=== PATIENT | female | born 1970 | race African-American/Black ===

== ENCOUNTER → 2021-09-13 07:43 | Outpatient (CLI) | payer MEDICARE, OTHER, SELFPAY ==
--- NOTE | 2021-09-13 | CA_ITS ---
APPROVED REPORT Exam: Pharmacologic Technologist: Cate Mcgowan, Ht: 5 ft 0 in Wt: 217 lbs BSA: 1.93 m2 HR: 62 bpm BP: 118/74 mmHg Rhythm: NSR, normal Medical History Medical History: Hyperlipidemia, Diabetes Medications: Clonidine,,,,, Metformin,,,,, Atorvastatin,,,,, Vit D3,,,,, Fluoxetine,,,,, Quetiapine,,,,, CitruCEL,,,,, Feosol,,,,, Cardiac Risk Factors: Hyperlipidemia, Diabetes (non-insulin), FHX of CAD Stress Test Details Test: LEXISCAN HR Resting HR: 71 bpm Max Heart Rate (APMHR): 171.205836 bpm Max HR Achieved: 85 bpm Target HR (85% APMHR): 145.154901 bpm % of APMHR: 49.71 Recovery HR: 72 bpm BP Resting BP: 118/74 mmHg Max BP: 119/65 mmHg Recovery BP: 103.0/65.0 mmHg ECG Resting ECG: NSR, normal Clinical Exercise duration: 04:00 min Highest Stage Achieved: Stress ECG Conclusion During lexiscan pt experinced SOA, no CP noted. No arrhythmias noted. Unremarkable lexiscan stress. Myoview images reported separately. Test Summary . . . . . Stop exercise at 04:00 . . . . Electronically signed by : Brian Fritz MD 09/14/2021 13:05:25
--- NOTE | 2021-09-13 07:43 | CA_ITS ---
APPROVED REPORT EXAM: Comprehensive 2D, Doppler, and color-flow Echocardiogram Hydrologic Modeler: Olga Crews, SHARON, RVS Ht: 5 ft 0 in Wt: 220lbs BSA: 1.94 BP: 124/80 mmHg Indications: CP, Dyspnea, DM, HLD 2D Dimensions LVDd 5.09 cm LA Volume 28.70 mL Aortic Root 2.32 cm LA Volume Index 14.571996 mL/m2 (M/F) 16-34 Left Atrium 3.01 cm LVOT 1.81 cm (M/F) 1.5-2.5 M-Mode Dimensions RVDd 1.58 cm (0.9-2.6) LA Diam 2.86 cm (1.9-4.0) LVDd 5.16 cm (3.5-5.7) Ao Diam 2.32 cm (2.0-3.7) LVDs 3.22 cm (3.5-5.7) IVSd 0.84 cm (0.6-1.1) PWd 0.87 cm (0.6-1.1) EF (Teich) 67.30% EPSs 1.01 cm FS 37.60% EDV (Teich) 127.20 mL TAPSE 2.21 (<1.7) ESV (Teich) 41.60 mL LV Diastology E Decel Time 167.00 (160-240 msec) E/A Ratio 1.68 MED E' 12.20 (< 7 cm/sec) MED A' 7.30 cm/s E'/MED E' Ratio 8.28 (>14) LAT E' 11.90 (<10 cm/sec) LAT A' 4.70 cm/s E/LAT E' Ratio 8.49 (>14) Aortic Valve LVOT Max 108.00 (70-110 cm/s) LVOT VTI 23.51 cm AoV Peak Kelby. 192.00 (50-130 cm/s) AO Peak GR. 14.70 mmHg AO Mean GR. 7.70 (<5 mmHg) AO VTI 42.54 (18-25 cm) FUNMILAYO (VTI) 1.42 (2.5-4.5 cm2) Mitral Valve MV A Velocity 60.00 (40-130 cm/s) E/A Ratio 1.68 MV Decel. Time 167.00 (160-240 ms) MV PHT 50.00 ms Pulmonary Valve PV Peak Velocity 104.00 (50-150 cm/s) Tricuspid Valve TR P. Velocity 292.00 cm/s RAP Estimate 10.00 mmHg RVSP 44.00 mmHg Left Ventricle Left atrium normal size, left ventricle is normal size, left ventricle wall thickness is upper limit of the normal, there is preserved left ventricular systolic function, estimated ejection fraction 55% with no regional wall motion abnormality, diastolic parameters are within normal range. Right Ventricle Right atrium and right ventricle are normal size and contractility. Aortic Valve Aortic valve is grossly normal, there is no aortic stenosis or aortic insufficiency. Mitral Valve Mitral valve grossly normal, there is trace mitral regurgitation. Tricuspid Valve Tricuspid grossly normal, there is trace tricuspid regurgitation, calculated right ventricular systolic pressure is 44 mmHg. Pulmonic Valve Pulmonic valve is poorly visualized. Great Vessels Aortic root is normal size. Inferior vena cava is normal size with normal inspiratory collapse. Pericardium No significant pericardial effusion. Conclusion 1. Normal left ventricular size preserved left ventricular systolic function, estimated ejection fraction 55% with no regional wall motion abnormality, diastolic parameters are within normal range. 2. Mildly enlarged right ventricle with normal contractility. 3. Trace mitral and tricuspid regurgitation, calculated right ventricular systolic pressure is 44 mmHg. 4. No significant pericardial effusion noted. 5. Inferior vena cava normal size with normal inspiratory collapse. Electronically signed by : Brian Fritz MD 09/14/2021 14:05:35
--- NOTE | 2021-09-13 08:12 | NM_ITS ---
APPROVED REPORT Exam: Nuclear Stress Test Indication: OBESITY, D.M., HYPERLIPIDEMIA, C.P., SOB Patient Location: Outpatient Stress Tech: Caet DENNISON Tech:MARVEL Soto RT (R)(N)(M) Ht: 5 ft 1 in Wt: 217 lbs Bra Size: D HR: 62 bpm BP: 118/74 mmHg BSA: 1.96 m2 BMI: 40.9 History: OBESITY, D.M., HYPERLIPIDEMIA, C.P., SOB Procedure: Patient received a 0.4 mg of intravenous Lexiscan, resting heart rate 62 bpm, resting blood pressure 118/74 mmHg, with Lexiscan maximum heart rate achived was 85 bpm which is Less than 85 % of the maximum predicted heart rate and blood pressure was 119/65 mmHg. With Lexiscan, patient denied any complaint of chest pain. Electrocardiogram Resting electrocardiogram shows sinus rhythm, with Lexiscan less than 1.[address] segment depression noted from the baseline EKG. The EKG portion of the Lexiscan is nondiagnostic. Cardiac Stress and Resting SPECT Images: Cardiac Stress and Resting SPECT images were obtained using technetium 99m Myoview 31.9 mCi stress and 9.34 mCi at rest. Gated SPECT analysis of segmental wall motion and calculation of the ejection fraction also done, prone images were also obtained. This study is technically limited due to patient's body habitus, there is mild fixed defect in the anterior wall which is likely secondary to soft tissue attenuation, no reversible ischemia seen, however there is marked transient ischemic dilatation of the left ventricle seen, raising the concern for presence of balanced ischemia or multivessel coronary artery disease. Computer derived ejection fraction is 47% with no regional wall motion abnormality, right ventricle is mildly enlarged with normal contractility. Conclusion: 1. The EKG portion of the Lexiscan is nondiagnostic. 2. No scintigraphic evidence of reversible ischemia seen, however this study is technically limited due to patient's body habitus, there is marked transient ischemic dilatation of the left ventricle seen, raising the concern for presence of balanced ischemia or multivessel coronary artery disease, right ventricle is mildly enlarged with normal contractility. Compared right left ventricular ejection fraction is 47%. 3. Abnormal Lexiscan Myoview study. Electronically signed by : Brian Fritz MD 09/14/2021 13:08:45
[2021-09-13 08:30] LABS: Blood Urea Nitrogen 11 mg/dl (7-17); Estimated Glomerular Filt Rate 59 ml/min (>60); GFR (African American) 71 ML/MIN (>60)
--- NOTE | 2021-09-13 11:22 | CT_ITS ---
FINAL REPORT CLINICAL HISTORY: 30 lb weight loss/nausea/vomiting/fm hx of pancrea FINDINGS: CT ABDOMEN WITHOUT CONTRAST Axial CT images were performed through the abdomen without contrast. This study was performed with techniques to keep radiation doses as low as reasonably achievable, (ALARA). Individualized dose reduction techniques using automated exposure control or adjustment of mA and/or kV according to the patient's size were employed. Abdomen: The lung bases are clear. The liver is normal in size and attenuation. The gallbladder is absent. The common duct is dilated up to 1.5 cm. There are questionable densities in the distal common bile duct concerning for choledocholithiasis best seen on image 39 of series 601. There are calcified granulomas in the spleen. No adrenal mass is seen. The pancreas is unremarkable. The kidneys are unremarkable. The aorta is normal in caliber. No free fluid or adenopathy is identified. There is a large amount of retained stool. There is a partially visualized cystic mass in the mid pelvis measuring 9.6 x 5.9 cm. IMPRESSION: Partially visualized cystic mass in the mid pelvis. Cannot exclude adnexal cystic lesion. Dedicated pelvic CT is recommended for further evaluation. Dilated common duct containing possible sludge or stones. Reviewed, Interpreted and Dictated by Immanuel Cerda MD Transcribed by Palmer Biswas Authenticated and [facility]
== END ==
PROVIDERS: Nurse Practitioner Family; PCP General Practice; Visit Provider Internal Medicine
DX: R06.00 Dyspnea, unspecified (principal); R07.9 Chest pain, unspecified; R11.2 Nausea with vomiting, unspecified; G47.33 Obstructive sleep apnea (adult) (pediatric); R06.83 Snoring; R40.0 Somnolence
CPT/HCPCS: 36415; 74150; 78452; 82565; 84520; 93017; 93306; A9502; G0399; J2785

== ENCOUNTER 2021-09-17 08:50 | Day surgery (SDC) | payer MEDICARE, OTHER, SELFPAY ==
[2021-09-17] VITALS (14 sets, daily range): BP systolic 93–129; BP diastolic 60–76; PULSE 60–77; RESP 18–20; TEMP 36.9; O2SAT 91–100; BMI 42.3
--- NOTE | 2021-09-17 08:50 | CT_ITS ---
FINAL REPORT TECHNIQUE: After the administration of oral and intravenous contrast, axial images were obtained through the abdomen and pelvis by computed tomography. The study was performed with techniques to keep radiation dose as low as reasonably achievable, (ALARA). Individual dose reduction techniques using automated exposure control or adjustment of mA and/or kV according to the patient's size were employed. CLINICAL HISTORY: abnormal abdominal ct scan COMPARISON: 09/13/2021 FINDINGS: Abdomen: The lung bases are clear. The liver is normal in size and attenuation. The patient is status post cholecystectomy. There is moderate extrahepatic ductal dilatation of uncertain significance. The spleen is unremarkable. The adrenals are normal. The pancreas is unremarkable. The kidneys enhance appropriately. The aorta is normal in caliber. There is no free fluid or adenopathy. Pelvis: The appendix is not identified. There is a moderate to large amount of retained stool throughout the colon. There is a septated cystic mass in the right pelvis measuring 10.8 cm. It is uncertain if this this is ovarian in origin. The ovary is seen posterior to the mass. Differential diagnosis would include cystic ovarian mass or other cystic mass. The urinary bladder is unremarkable. There is no free fluid or adenopathy. IMPRESSION: Extrahepatic ductal dilatation of uncertain significance. MRCP may be helpful. Septated cystic mass in the right pelvis as detailed above. Reviewed, Interpreted and Dictated by Dangelo Landry III, MD Transcribed by Christine Godinez Authenticated and [facility]
[2021-09-17 09:23] LABS: Coronavirus 19, PCR Not Detected (NotDetected); Influenza A, PCR Not Detected (NotDetected); Influenza B, PCR Not Detected (NotDetected)
--- NOTE | 2021-09-17 10:27 | XR_ITS ---
FINAL REPORT CLINICAL HISTORY: PICC line placement FINDINGS: A single portable view of the chest was obtained. A right-sided PICC line is present with the tip in the mid SVC. The heart size and pulmonary vascularity are within normal limits. The mediastinum is within normal limits. No acute pulmonary abnormality is identified. The bony thorax is intact. IMPRESSION: Right-sided PICC line is present with the tip in the mid SVC. No active cardiopulmonary disease. Reviewed, Interpreted and Dictated by Dangelo Landry III, MD Transcribed by Edelmira Hawkins Authenticated and [facility]
[2021-09-17 10:42] LABS: Basophils % 0.2 % (0.1-2.0); Eosinophils # 0.2 K/mm3 (0.0-0.4); Eosinophils % 2.8 % (0.1-12.0); Hematocrit 31.3 % (37.0-47.0); Hemoglobin 10.2 g/dL (12.2-16.2); Lymphocytes # 1.4 K/mm3 (0.7-4.5); Mean Corpuscular HGB Conc 32.6 g/dL (31.8-35.4); Mean Corpuscular Hemoglobin 29.2 pg (27.0-31.2); Mean Corpuscular Volume 89.6 fl (81-99); Mean Platelet Volume 7.5 fl (7.4-10.4); Monocytes # 0.4 K/mm3 (0.1-1.0); Monocytes % 4.5 % (1.7-9.3); Neutrophils # 6.8 K/mm3 (1.8-7.8); Neutrophils % 76.5 % (37.0-80.0); Platelet Count 320 K/mm3 (142-424); Red Blood Count 3.49 M/mm3 (4.20-5.40); White Blood Count 8.8 K/mm3 (4.8-10.8)
[2021-09-17 10:50] LABS: Anion Gap 9.7 mEq/L (5-15); Blood Urea Nitrogen 11 mg/dl (7-17); Carbon Dioxide 27 mmol/L (22.0-30.0); Chloride 104 mmol/L (98-107); Creatinine Clearance Estimated 44 mL/min (50-200); Estimated Glomerular Filt Rate 53 ml/min (>60); GFR (African American) 64 ML/MIN (>60); Glucose 116 mg/dl (74-100); Potassium 3.7 mmoL/L (3.5-5.1); Sodium 137 mmol/L (136-145)
--- NOTE | 2021-09-17 10:58 | IR_ITS ---
APPROVED REPORT Patient Location: Outpatient Video Game Tester: MARVEL Garay RT (R) PROCEDURES Left heart catheterization Left ventriculogram Selective coronary angiogram INDICATION Abnormal Myoview, Angina pectoris Informed consent was obtained prior to the procedure. COMPLICATIONS None Estimated Blood Loss: Less than 10 mls TECHNIQUE One percent lidocaine used to anesthetize the right anterior aspect of the wrist. The right radial artery was accessed via the Seldinger technique. A 6 Romanian sheath was placed in the right radial artery. 2.5 mg of verapamil, 800 mcg of nitroglycerin, 1mg Lidocaine and 5000 U Heparin were given through the arterial sheath. The papa catheter was also used to perform left heart catheterization, left ventriculogram and selective coronary angiogram. At the end of the procedure the sheath was removed good hemostasis was achieved using Traclet band, patient was transferred to the postop holding area in stable condition. ANGIOGRAPHIC RESULTS The left main artery Normal The left anterior descending artery Normal The circumflex artery Normal The right coronary artery Dominant normal The FRANZ ventriculogram reveals Horizontal heart with slightly hyperdynamic ejection fraction estimated at 70% The left ventricular end-diastolic pressure 30 mmHg IMPRESSION Normal coronary arteries Borderline hyperdynamic ventricle with elevated LVEDP both consistent with hypertensive heart disease accompanied by diastolic dysfunction PLAN 1. Treatment of diastolic dysfunction and associated risk factors Electronically signed by : Sudhir Gallardo MD 09/17/2021 12:19:01
--- NOTE | 2021-09-17 12:54 | SUR.PHASEII ---
Follow up appointment not necessary per dumper bailer operator.
[2021-09-17 13:39] LABS: Alanine Aminotransferase 9 U/L (12-78); Albumin Level 3.8 g/dl (3.5-5.0); Alkaline Phosphatase 96 U/L (38-126); Amylase 61 U/L (30-110); Aspartate Amino Transferase 18 U/L (14-36); Bilirubin,Indirect 0.3 mg/dL (0.0-0.9); Bilirubin,Total 0.3 mg/dl (0.2-1.3); Bilirubin,Unconjugated 0.4 mg/dL (0.0-1.1); Lipase 69 U/L (23-300); Total Protein,Serum 6.7 g/dl (6.3-8.2)
== END 2021-09-17 15:14 | disposition home or self-care (01) ==
PROVIDERS: Internal Medicine; PCP General Practice; Visit Provider Nurse Practitioner Family
DX: R11.2 Nausea with vomiting, unspecified (principal); R93.5 Abnormal findings on diagnostic imaging of other abdominal regions, including retroperitoneum; E11.9 Type 2 diabetes mellitus without complications; E66.01 Morbid (severe) obesity due to excess calories; I25.118 Atherosclerotic heart disease of native coronary artery with other forms of angina pectoris; R06.00 Dyspnea, unspecified; Z82.49 Family history of ischemic heart disease and other diseases of the circulatory system; K83.8 Other specified diseases of biliary tract; R19.00 Intra-abdominal and pelvic swelling, mass and lump, unspecified site; R94.39 Abnormal result of other cardiovascular function study; I10 Essential (primary) hypertension; Z68.41 Body mass index [BMI] 40.0-44.9, adult
CPT/HCPCS: 36410; 36569; 71045; 74177; 80048; 80076; 82150; 83690; 85025; 93458; 99152; C1725; C1751; C1769; C9803; J1644; Q9967; U0003; U0005

== ENCOUNTER → 2021-10-03 08:48 | Outpatient (CLI) | payer MEDICARE, OTHER, SELFPAY ==
--- NOTE | 2021-10-03 08:48 | MR_ITS ---
FINAL REPORT CLINICAL HISTORY: bile duct dilatation, VOMITING COMPARISON: CT dated September 17, 2021 FINDINGS: Multiplanar MR imaging of the abdomen was performed without contrast. Images of the liver reveal no evidence of mass. There has been cholecystectomy. There is extrahepatic biliary duct dilatation with the common duct measuring up to 17 mm. There is no filling defect to suggest stone. There is no stricture. The visualized pancreatic duct is normal. No other mass or adenopathy is identified. IMPRESSION: Extrahepatic biliary duct dilatation post cholecystectomy. Reviewed, Interpreted and Dictated by aDngelo Landry III, MD Transcribed by Palmer Biswas Authenticated and [facility]
== END ==
PROVIDERS: PCP General Practice; Visit Provider Internal Medicine
DX: K83.8 Other specified diseases of biliary tract (principal)
CPT/HCPCS: 74181; 76376